=== PATIENT | male | born 1980 | race Two or more races ===

== ENCOUNTER 2016-12-25 16:14 | Emergency (ER) | payer SELFPAY ==
[2016-12-25 16:21] VITALS: PULSE 82; RESP 16; TEMP 97.7; O2SAT 95
--- NOTE | 2016-12-25 16:47 | EDPHY ---
H & P Time Seen by Provider: 12/25/16 16:33 HPI/ROS: CHIEF COMPLAINT: Left ear pain HISTORY OF PRESENT ILLNESS: 36-year-old male presents to the emergency department by private vehicle complaining of severe left-sided ear pain. The patient was diagnosed with left otitis media on December 19, 2016. He was prescribed Augmentin. He has been taking this medication twice daily as prescribed. He states over last 24 hours he has had more severe pain in his left ear. He is having pain even just touches left ear. He denies any known trauma or injury. He denies dysphagia. He denies chest pain or difficulty breathing. Denies any other URI symptoms. He took Tylenol prior to arrival without relief. He denies hearing loss. He denies any hearing loss. REVIEW OF SYSTEMS: Constitutional: No fever, no chills. Eyes: No double or blurry vision. ENT: No sore throat. Respiratory: No cough, no shortness of breath. Cardiac: No chest pain. Gastrointestinal: No abdominal pain, vomiting or diarrhea. Genitourinary: No dysuria. Musculoskeletal: No neck or back pain. Skin: No rashes. Neurological: No headache. Past Medical/Surgical History: Hypertension Social History: and lives in [place] Smoking Status: Light smoker Physical Exam: General Appearance: Alert, no distress. Afebrile. No apparent distress. Eyes: Pupils equal and round. Extraocular motions are all intact. ENT: Mouth: Mucous membranes moist. Left tympanic membrane is erythematous and cloudy. There is purulent drainage noted in the external auditory canal. It is slightly swollen in the external auditory canal as well. Unable to visualize the entire tympanic membrane. No cerumen noted. Nontender to palpate over the left mastoid bone. He does have some mild left pre-auricular tenderness as well. Mild tragal motion tenderness on the left side as well. Respiratory: No wheezing, rhonchi, or rales, lungs are clear to auscultation. Cardiovascular: Regular rate and rhythm. Gastrointestinal: Abdomen is soft and nontender, no masses, no rebound or guarding, bowel sounds normal. Neurological: Alert and oriented x 3, cranial nerves II through XII grossly intact Skin: Warm and dry, no rashes. Musculoskeletal: Nontender to palpate along the cervical, thoracic or lumbar spine. Neck is supple. No cervical lymphadenopathy palpated. Extremities: Full range of motion and no peripheral edema. Psychiatric: Patient is oriented X 3, there is no agitation. Constitutional: Initial Vital Signs Temperature (C) 36.5 C 12/25/16 16:17 Heart Rate 82 12/25/16 16:17 Respiratory Rate 16 12/25/16 16:17 O2 Sat (%) 95 12/25/16 16:17 O2 Delivery Mode Room Air Allergies/Adverse Reactions: No Known Allergies Allergy (Verified 12/25/16 16:21) Home Medications: Medication Instructions Recorded Amoxicillin/Clavulanate Pot 12/25/16 Ciprofloxacin/Dexamethasone 4 drops OTIC BID 7 Days 12/25/16 [Ciprodex (RX)] Losartan Potassium 12/25/16 Medical Decision Making ED Course/Re-evaluation: Clinically I think this patient has persisting left otitis media. He will continue Augmentin as prescribed. Also think this patient has otitis externa and will be treated with Ciprodex drops. Encouraged him to use over-the- counter ibuprofen for pain. He was instructed to return if he developed hearing loss, worsening pain, or if he felt worse in any way. Differential Diagnosis: Including but not limited to otitis media, otitis externa, malignant otitis, mastoiditis Departure - Departure Disposition: Home, Routine, Self-Care Clinical Impression: Left otitis externa Qualifiers: Otitis externa type: unspecified type Chronicity: acute Qualified Code(s): H60.502 - Unspecified acute noninfective otitis externa, left ear Condition: Good Instructions: Otitis Externa (ED) Additional Instructions: Ciprodex drops twice daily as instructed for 1 week. Continue Augmentin as prescribed. Ibuprofen 600 mg every 8 hours as needed for pain. Referrals: Jojo Kimball MD [Medical Doctor] - 3-4 days, if not improved (ENT on-call) Prescriptions: Ciprofloxacin/Dexamethasone [Ciprodex (RX)] 4 drops OTIC BID 7 Days
[2016-12-25] MEDS ORDERED: IBUPROFEN 600 MG TAB PO ONE (16:50)
== END 2016-12-25 17:13 | disposition home or self-care (01) ==
DX: H60.502 Unspecified acute noninfective otitis externa, left ear (principal); I10 Essential (primary) hypertension; F17.200 Nicotine dependence, unspecified, uncomplicated